=== PATIENT | female | born 1985 | race Caucasian/White ===

== ENCOUNTER 2023-02-11 11:16 | Emergency (ER) | payer OTHER, MEDICAID, SELFPAY ==
[2023-02-11 11:22] VITALS: BP 154/76; PULSE 99; RESP 18; TEMP 36.7; O2SAT 100; BMI 28.3
--- NOTE | 2023-02-11 11:26 | DI.RAD.S_ITS ---
PROCEDURE: XR KNEE RT 3V INDICATIONS: injury TECHNIQUE: 3 views of the knee were acquired. COMPARISON: None. FINDINGS: Bones: Postoperative changes of tibial and femoral tunnels. No acute displaced fracture. Knee joint alignment is maintained. Soft tissues: Small joint fluid. IMPRESSION: No acute osseous abnormality. Postoperative changes of tibial and femoral tunnels. Small amount of joint fluid. If there is high concern for occult injury, consider repeat radiography or cross-sectional imaging. Dictated by: William Vizcarra M.D. on 02/11/2023 at 12:01 Approved by: William Vizcarra M.D. on 02/11/2023 at 12:02
--- NOTE | 2023-02-11 11:52 | ED.LOWEXIN ---
HPI - Extremity Injury (Lower) <Rosita Figueroa PA-C - Last Filed: 02/11/23 12:24> General Chief Complaint: Extremity Injury, Lower Stated Complaint: R/ knee injury Time Seen by Provider: 02/11/23 11:49 Source: patient Mode of arrival: Ambulatory History of Present Illness HPI Narrative: 38-year-old female presents for evaluation of right knee injury. 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 She could not initially walk and within 20 minutes the knee appeared to be significantly swollen. She can weightbear although it hurts. She had an ACL repair on this knee several years ago. She is no chronic health problems. Related Data Allergies Allergy/AdvReac Type Severity Reaction Status Date / Time No Known Drug Allergies Allergy Verified 02/11/23 11:22 Review of Systems <Rosita Figueroa PA-C - Last Filed: 02/11/23 12:24> Review of Systems Narrative: GENERAL: Denies chills, fatigue, malaise, fever, sweats. MUSCULOSKELETAL: See HPI SKIN: Denies rash, skin lesions, or other PSYCHIATRIC: No concerning psychosocial issues. Patient History <Rosita Figueroa PA-C - Last Filed: 02/11/23 12:24> Social History Smoking Status: Never smoker Smoking Status: Never smoker alcohol intake frequency: other Substance Use Type: does not use Exam <Rosita Figueroa PA-C - Last Filed: 02/11/23 12:24> Narrative Exam Narrative: GENERAL: 38 year old patient appears stated age. Well-developed patient, in mild distress. HEAD: Atraumatic. Normocephalic. EYES: Pupils equal round and reactive. Extraocular motions intact. No scleral icterus. No injection or drainage. ENT: Nose without bleeding, purulent drainage. EXTREMITIES: Right knee shows moderate effusion proximal to the patella. She is exquisitely tender over the patella and the medial ligament. Medial lateral and ACL without laxity. She can bend the knee with some difficulty. Skin is warm and dry without erythema. NEURO: AOx3. SKIN: No rash or erythema of visible areas Initial Vital Signs Initial Vital Signs: Vital Signs Temperature 98.1 F 02/11/23 11:22 Pulse Rate 99 H 02/11/23 11:22 Respiratory Rate 18 02/11/23 11:22 Blood Pressure 154/76 H 02/11/23 11:22 Pulse Oximetry 100 02/11/23 11:22 Oxygen Delivery Method Room Air 02/11/23 11:22 <Nancy Magaña MD - Last Filed: 02/11/23 19:19> Initial Vital Signs Initial Vital Signs: Vital Signs Temperature 98.1 F 02/11/23 11:22 Pulse Rate 99 H 02/11/23 11:22 Respiratory Rate 18 02/11/23 11:22 Blood Pressure 154/76 H 02/11/23 11:22 Pulse Oximetry 100 02/11/23 11:22 Oxygen Delivery Method Room Air 02/11/23 11:22 Course <Rosita Figueroa PA-C - Last Filed: 02/11/23 12:24> Orders Ordered: ED Orders 02/11/23 11:26 XR knee RT 3V Stat Discontinued Medications Ketorolac Tromethamine (Ketorolac 30 Mg/Ml Vial) 30 mg IM NOW ONE Stop: 02/11/23 11:57 Last Admin: 02/11/23 12:10 Dose: 30 mg Documented By: MPO Vital Signs Vital signs: Vital Signs - 8 hr 02/11/23 11:22 Temperature 98.1 F Pulse Rate 99 H Respiratory Rate 18 Blood Pressure 154/76 H Pulse Oximetry 100 Oxygen Delivery Method Room Air <Nancy Magaña MD - Last Filed: 02/11/23 19:19> Orders Ordered: ED Orders 02/11/23 11:26 XR knee RT 3V Stat Discontinued Medications Ketorolac Tromethamine (Ketorolac 30 Mg/Ml Vial) 30 mg IM NOW ONE Stop: 02/11/23 11:57 Last Admin: 02/11/23 12:10 Dose: 30 mg Documented By: MPO Vital Signs Vital signs: Vital Signs - 8 hr 02/11/23 11:22 Temperature 98.1 F Pulse Rate 99 H Respiratory Rate 18 Blood Pressure 154/76 H Pulse Oximetry 100 Oxygen Delivery Method Room Air MDM - Extremity Injury (Lower) <Rosita Figueroa PA-C - Last Filed: 02/11/23 12:24> Differential Diagnosis Differential diagnosis: Likely acute internal derangement of knee and other (Patellar fracture, tendinous injury.) Imaging Data Extremity x-ray #1: Radiologist's Impression: PROCEDURE: XR KNEE RT 3V INDICATIONS: injury TECHNIQUE: 3 views of the knee were acquired. COMPARISON: None. FINDINGS: Bones: Postoperative changes of tibial and femoral tunnels. No acute displaced fracture. Knee joint alignment is maintained. Soft tissues: Small joint fluid. IMPRESSION: No acute osseous abnormality. Postoperative changes of tibial and femoral tunnels. Small amount of joint fluid. If there is high concern for occult injury, consider repeat radiography or cross-sectional imaging. Dictated by: William Vizcarra M.D. on 02/11/2023 at 12:01 Approved by: William Vizcarra M.D. on 02/11/2023 at 12:02 [facility] Narrative Medical decision making narrative: The negative x-ray except for a fusion points to soft tissue injury without obvious instability on exam. We discussed conservative home care including Srikanth wrap knee immobilizer and crutches with toe-touch and weight-bearing as tolerated. This case was discussed with agrees with the plan. Discharge Plan Departure Patient Disposition: Home Clinical Impression: Knee Injury Qualifiers: Laterality: right Instructions: DI for Knee Sprain Activity Restrictions/Additional Instructions: This appears to be a soft tissue injury to your knee. Your x-ray is normal. The soft tissues can not be visualized on x-ray alone but given this is a very recent injury conservative treatment is warranted before further imaging. The best way to work on that swelling is to keep the knee elevated particularly above the level of your heart when possible. Sleep with a pillow or 2 under that knee. Use that the compression wrap for comfort and the knee immobilizer when your ambulating. I suggest you follow up with the office that did your ACL repair. It was a pleasure to take care of you today. Referrals: Miscellaneous,Doctor, [Primary Care Provider] - Stand Alone Forms: Patient Portal/API ED Sign-out <Nancy Magaña MD - Last Filed: 02/11/23 19:19> Cosign ED Attending Cosignature Attestation: I was immediately available in the department for consultation throughout this patient's visit. Nancy Magaña MD
[2023-02-11] MEDS: KETOROLAC 30 MG/ML VIAL IM (12:10)
== END 2023-02-11 12:31 | disposition home or self-care (01) ==
PROVIDERS: Emergency Provider Physician Assistant
DX: S83.91XA Sprain of unspecified site of right knee, initial encounter (principal); M25.461 Effusion, right knee; W20.8XXA Other cause of strike by thrown, projected or falling object, initial encounter; Y93.E6 Activity, residential relocation; Y92.009 Unspecified place in unspecified non-institutional (private) residence as the place of occurrence of the external cause; Y99.8 Other external cause status
CPT/HCPCS: 73562; 96372; 99283; 99284; J1885